=== PATIENT | female | born 1980 | race Caucasian/White ===

== ENCOUNTER 2019-10-15 18:01 | Emergency (ER) | payer MEDICAID ==
[~2019-10-15] VITALS: Ht 157.5 cm; Wt 79.4 kg
[2019-10-15 18:16] VITALS: Ht 157.5 cm; Wt 79.4 kg
[2019-10-15 22:01] VITALS: BP 121/65
== END 2019-10-15 22:01 | disposition home or self-care (01) ==
LOC: ED 18:01
DX: G43.909 Migraine, unspecified, not intractable, without status migrainosus (principal); R11.0 Nausea; R20.0 Anesthesia of skin
CPT/HCPCS: J1200; J1885; J2765